=== PATIENT | male | born 1975 | race Two or more races ===

== ENCOUNTER → 2016-11-11 | Outpatient (CLI) | payer SELFPAY ==
[2016-11-11 13:54] LABS: ALBUMIN 3.7 gm/dL (3.5-5.0); ALK PHOS 59 IU/L (33-138); ALT 61 IU/L (12-78); ANION GAP 11.2 (10.0-19.0); AST 13 IU/L (10-40); BLOOD UREA NITROGEN 9 mg/dL (6-24); CALCIUM 8.5 mg/dL (8.5-10.5); CHLORIDE 103 mMol/L (96-110); CO2 27 mMol/L (22-32); CREATININE 0.9 mg/dL (0.6-1.3); ESTIMATED GFR (MDRD EQUATION) > 60; POTASSIUM 4.2 mMol/L (3.7-5.1); SODIUM 137 mMol/L (135-145); TOTAL BILIRUBIN 1.7 mg/dL (0.0-1.5); TOTAL PROTEIN 8.2 g/dL (6.0-8.4)
== END | disposition disaster alternative care site (69) ==
LOC: GLAB 13:00
PROVIDERS: Nurse Practitioner Acute Care
DX: E11.65 Type 2 diabetes mellitus with hyperglycemia (principal)